=== PATIENT | female | born 1960 | race Two or more races ===

== ENCOUNTER → 2024-08-08 | Outpatient (CLI) | payer BC, SELFPAY ==
--- NOTE | 2024-08-08 13:30 | XR_ITS ---
Examination: Retroperitoneal ultrasound, complete Technique: Multiple high resolution grayscale images of the retroperitoneum obtained, including kidneys and bladder. Exam date and time:August 08, 2024 1306 hours INDICATIONS: Diagnosis chronic kidney disease stage II, onset right-sided flank pain beginning 2 days ago FINDINGS: Right kidney 10.2 cm cortex 1.2 cm Minimal right hydronephrosis Left kidney 10.8 cm cortex 1.2 cm Lobulation lower pole left kidney 19 x 15 x 16 mm, I cannot exclude a true renal mass at this site No renal calculi No bladder mass or bladder calculi Bladder prevoid volume 317 cc IMPRESSION: Consider CT scan abdomen pelvis post intravenous contrast follow-up to assess etiology of the minimal right hydronephrosis and to exclude solid tumor lower pole left kidney 19 x 15 x 16 mm
== END | disposition home or self-care (01) ==
LOC: CDIM 12:38
PROVIDERS: PCP Family Medicine; Referring Provider Internal Medicine Nephrology; Visit Provider Internal Medicine Nephrology
DX: N13.30 Unspecified hydronephrosis (principal); N18.2 Chronic kidney disease, stage 2 (mild); Q63.1 Lobulated, fused and horseshoe kidney
CPT/HCPCS: 76770

== ENCOUNTER → 2025-01-23 | Outpatient (CLI) | payer BC, SELFPAY ==
--- NOTE | 2025-01-23 09:30 | XR_ITS ---
Examination: Retroperitoneal ultrasound, complete Technique: Multiple high resolution grayscale images of the retroperitoneum obtained, including kidneys and bladder. Exam date and time: January 23, 2025, 0943 hours INDICATIONS: Renal sonogram August 08, 2024 minimal right hydronephrosis, mass versus lobulation lower pole left kidney 19 mm FINDINGS: Right kidney 9.6 cm renal cortex 1.7 cm Mild hydronephrosis Left kidney 10.8 cm renal cortex 1.5 cm Lobular contour to the lower pole 19 x 15 x 17 mm No bladder mass or bladder calculi IMPRESSION: Recommend MRI abdomen kidneys follow-up pre and postcontrast to exclude small solid tumor lower pole left kidney 19 x 15 x 17 mm
== END | disposition home or self-care (01) ==
LOC: CDIM 09:25
PROVIDERS: PCP Family Medicine; Referring Provider Nurse Practitioner Family; Visit Provider Nurse Practitioner Family
DX: N28.89 Other specified disorders of kidney and ureter (principal)
CPT/HCPCS: 76770